=== PATIENT | female | born 1990 | race Native Hawaiian/Other Pacific Islander ===

== ENCOUNTER 2016-03-20 17:47 | Observation (INO) | payer OTHER ==
[~2016-03-20] VITALS: Ht 165.1 cm; Wt 106.1 kg
[2016-03-20 18:24] VITALS: BP 156/88; TEMP 98.1; Ht 165.1 cm; Wt 106.1 kg
[2016-03-20 18:27] LABS: PLATELET COUNT 259 K/uL (152-353)
[2016-03-20] MEDS ORDERED: XULANE 150-35 M1 DIS TD (18:30)
[2016-03-20 18:37] LABS: POTASSIUM 4.1 mmol/L (3.6-5.2); SODIUM 137 mmol/L (136-145)
[2016-03-20 20:00] VITALS: BP 134/74; TEMP 98.8
[2016-03-21] VITALS (13 sets, daily range): BP systolic 107–130; BP diastolic 50–77; TEMP 97.6–98.7
[2016-03-22 00:23] VITALS: BP 110/68; TEMP 97.7
[2016-03-22 05:10] LABS: PLATELET COUNT 171 K/uL (152-353)
[2016-03-22 05:31] VITALS: BP 135/77; TEMP 97.8
[2016-03-22 08:00] VITALS: BP 157/85; TEMP 98.1
[2016-03-22 12:00] VITALS: BP 152/78; TEMP 98
[2016-03-22 15:06] LABS: PLATELET COUNT 210 K/uL (152-353)
[2016-03-22 16:00] VITALS: BP 148/64; TEMP 97.8
== END 2016-03-22 20:20 | disposition home or self-care (01) ==
LOC: MED/SURG 17:47
PROVIDERS: ADMIT Student in an Organized Health Care Education/Training Program
PROC: 0DTJ4ZZ Resection of Appendix, Percutaneous Endoscopic Approach (ICD-10-PCS; principal; 2016-03-21)
DX: K35.89 Other acute appendicitis (principal)
CPT/HCPCS: 36415; 36591; 80053; 81000; 81025; 83690; 85027; 94760; 96365; 96366; 96367; 96375; 99220; G0378; G0379; J0330; J1170; J1644; J2001; J2250; J2270; J2405; J2543; J2704; J2710; J3010; J3490; J7120; Q9963

== ENCOUNTER 2016-05-17 20:22 | Emergency (ER) | payer OTHER ==
[~2016-05-17] VITALS: Ht 165.1 cm; Wt 97.5 kg
[~2016-05-17 20:22] MED LIST: XULANE 150-35 M1 DIS TD
[2016-05-17 22:33] LABS: POTASSIUM 3.9 mmol/L (3.6-5.2); SODIUM 142 mmol/L (136-145)
[2016-05-17 23:19] VITALS: BP 145/68; TEMP 98.2
== END 2016-05-17 23:20 | disposition home or self-care (01) ==
LOC: ED 20:22
PROVIDERS: Specialist
DX: R11.0 Nausea (principal)
CPT/HCPCS: 80048; 99282

== ENCOUNTER 2017-02-24 20:57 | Emergency (ER) | payer OTHER ==
[~2017-02-24] VITALS: Ht 165.1 cm; Wt 101.2 kg
[2017-02-24 21:55] VITALS: BP 136/98; TEMP 98
== END 2017-02-24 21:56 | disposition home or self-care (01) ==
LOC: ED 20:57
DX: Z34.93 Encounter for supervision of normal pregnancy, unspecified, third trimester (principal); R10.2 Pelvic and perineal pain
CPT/HCPCS: 99284

== ENCOUNTER 2017-08-04 21:00 | Emergency (ER) | payer OTHER ==
[~2017-08-04] VITALS: Ht 165.1 cm; Wt 96.6 kg
[2017-08-04 23:00] VITALS: BP 124/84; TEMP 97.9
== END 2017-08-04 23:00 | disposition home or self-care (01) ==
LOC: ED 21:00
DX: G43.909 Migraine, unspecified, not intractable, without status migrainosus (principal)
CPT/HCPCS: 96372; 99283; J1885

== ENCOUNTER 2017-08-30 00:06 | Emergency (ER) | payer OTHER ==
[~2017-08-30] VITALS: Ht 166.4 cm; Wt 97.5 kg
[2017-08-30 00:50] LABS: PLATELET COUNT 267 K/uL (152-353)
[2017-08-30 01:09] LABS: POTASSIUM 4.1 mmol/L (3.6-5.2)
[2017-08-30 01:30] VITALS: BP 128/73; TEMP 98.2
== END 2017-08-30 01:32 | disposition home or self-care (01) ==
LOC: ED 00:06
DX: N93.8 Other specified abnormal uterine and vaginal bleeding (principal)
CPT/HCPCS: 36415; 80053; 81000; 85027; 99282

== ENCOUNTER 2018-08-01 20:52 | Emergency (ER) | payer OTHER ==
[~2018-08-01] VITALS: Ht 166.4 cm; Wt 103.4 kg
[2018-08-01 20:56] VITALS: BP 141/84; TEMP 98.5
== END 2018-08-01 22:05 | disposition home or self-care (01) ==
LOC: ED 20:52
DX: R11.0 Nausea (principal); R42 Dizziness and giddiness
CPT/HCPCS: 99281

== ENCOUNTER 2018-08-26 14:09 | Outpatient (CLI) | payer OTHER | END 2018-08-26 20:14 | disposition home or self-care (01) | LOC: US 14:09 | DX: R60.0 Localized edema (principal) ==

== ENCOUNTER 2018-09-05 20:53 | Emergency (ER) | payer OTHER ==
[~2018-09-05] VITALS: Ht 166.4 cm; Wt 105.2 kg
[2018-09-05 21:24] VITALS: BP 129/88; TEMP 97.9
== END 2018-09-05 21:43 | disposition home or self-care (01) ==
LOC: ED 20:53
DX: H10.89 Other conjunctivitis (principal); H01.004 Unspecified blepharitis left upper eyelid
CPT/HCPCS: 99283